=== PATIENT | female | born 2000 | race Caucasian/White ===

== ENCOUNTER 2020-10-25 12:54 | Observation (INO) | payer OTHER ==
[2020-10-25] MEDS ORDERED: ACETAMINOPHEN 500 MG TABLET PO ONE (15:30)
== END 2020-10-25 16:05 | disposition home or self-care (01) ==
LOC: 3 SO LND 13:00 → UNDOADMIN 13:00 → 3 SO LND 13:00 → UNDODISIN 16:05
PROVIDERS: ADMIT Obstetrics & Gynecology; ATTEND Obstetrics & Gynecology
DX: O21.2 Late vomiting of pregnancy (principal); O26.893 Other specified pregnancy related conditions, third trimester; R10.2 Pelvic and perineal pain; R10.9 Unspecified abdominal pain; Z3A.29 29 weeks gestation of pregnancy
CPT/HCPCS: 59025; G0378; G0379

== ENCOUNTER 2020-12-26 16:38 | Observation (INO) | payer OTHER ==
[2020-12-26] MEDS ORDERED: IV RINGERS,LACTATED 1000ML 1,000 ML IV SCH (17:00)
[2020-12-26 17:41] LABS: BILIRUBIN,URINE NEGATIVE (NEG); CLARITY,URINE CLEAR; COLOR,URINE YELLOW; NITRITE,URINE POSITIVE (NEG); PROTEIN,URINE NEGATIVE (NEG-TRACE); UROBILINOGEN,URINE 0.2 mg/dL (0.2 mg/dL)
[2020-12-26 17:49] LABS: BACTERIA,URINE MODERATE /HPF (0-FEW); RBC,URINE OCC /HPF (0-2)
[2020-12-26] MEDS ORDERED: SMZ/TMP 800/160MG TABLET. PO ONE (20:00)
== END 2020-12-26 20:05 | disposition home or self-care (01) ==
LOC: 3 SO LND 16:38
PROVIDERS: ADMIT Obstetrics & Gynecology; ATTEND Obstetrics & Gynecology
DX: O21.2 Late vomiting of pregnancy (principal); O26.893 Other specified pregnancy related conditions, third trimester; H53.8 Other visual disturbances; R10.30 Lower abdominal pain, unspecified; Z3A.37 37 weeks gestation of pregnancy
CPT/HCPCS: 59025; 81001; 87086; G0378; G0379

== ENCOUNTER 2021-07-07 08:56 | Emergency (ER) | payer OTHER ==
[~2021-07-07] VITALS: Ht 170.2 cm; Wt 59.0 kg
[2021-07-07 09:04] VITALS: BP 146/77
[2021-07-07] MEDS ORDERED: KETOROLAC 15 MG/ML VIAL. IVP ONE ×2 (10:15→12:30)
[2021-07-07] MEDS ORDERED: IV NORMAL SALINE 1000ML BAG 1,000 ML IV ONE (10:15)
[2021-07-07] MEDS ORDERED: ORPHENADRINE CITRATE 60 MG/2 ML VIAL. IV ONE (10:15)
[2021-07-07 10:33] LABS: BASO % 0 % (0-3); EOS # 0.1 x10^3/uL (0.0-0.7); EOS % 1 % (0-3); HEMATOCRIT 31.7 % (36.0-47.0); HEMOGLOBIN 10.8 g/dL (12.0-15.5); LYMPH # 1.8 x10^3/uL (1.0-4.8); LYMPH % 20 % (24-48); MEAN CORPUSCULAR HEMOGLOBIN 32 pg (25-35); MEAN CORPUSCULAR HGB CONC 34 g/dL (31-37); MEAN CORPUSCULAR VOLUME 94 fL (79-100); MONO # 0.7 x10^3/uL (0.0-1.1); MONO % 8 % (0-9); NEUT # 6.5 x10^3/uL (1.8-7.7); NEUT % 72 % (31-73); PLATELET COUNT 326 x10^3/uL (140-400); RED BLOOD COUNT 3.37 x10^6/uL (3.50-5.40); RED CELL DISTRIBUTION WIDTH 13.4 % (11.5-14.5); WHITE BLOOD COUNT 9.1 x10^3/uL (4.0-11.0)
[2021-07-07 10:53] LABS: CALCIUM 8.9 mg/dL (8.5-10.1); CREATININE 0.7 mg/dL (0.6-1.0); GFR 105.6; POTASSIUM 3.2 mmol/L (3.5-5.1)
[2021-07-07 10:59] LABS: ALBUMIN 3.5 g/dL (3.4-5.0); ALBUMIN/GLOBULIN RATIO 0.8 (1.0-1.7); TOTAL BILIRUBIN 0.2 mg/dL (0.2-1.0)
[2021-07-07 11:35] LABS: BILIRUBIN,URINE NEGATIVE (NEG); CLARITY,URINE CLEAR; COLOR,URINE YELLOW; NITRITE,URINE NEGATIVE (NEG); PROTEIN,URINE NEGATIVE (NEG-TRACE); UROBILINOGEN,URINE 0.2 mg/dL (0.2 mg/dL)
[2021-07-07 11:48] LABS: BACTERIA,URINE FEW /HPF (0-FEW); RBC,URINE 0 /HPF (0-2)
--- NOTE | 2021-07-07 12:17 | RAD ---
EXAMINATION: CT ABDOMEN+PELVIS WO CLINICAL HISTORY: Bilateral flank pain TECHNIQUE: Imaging of the abdomen and pelvis was performed without intravenous contrast using standar d technique, scanning from just above the dome of the diaphragm to the symphysis pubis. Unenhanced i maging is limited for the evaluation of some intra-abdominal and pelvic pathology. CT Dose Reduction Employed: One or more of the following individualized dose reduction techniques wer e utilized for this examination: 1. Automated exposure control 2. Adjustment of the mA and/or kV ac cording to patient size 3. Use of iterative reconstruction technique. COMPARISON: None FINDINGS: Visualized heart and lungs unremarkable. Mild hepatomegaly. Gallbladder, pancreas, spleen, and adrenal glands unremarkable. Unenhanced kidneys unremarkable. No visualized urolithiasis or evidence of obstructive uropathy. Nondiagnostic evaluation of the decompressed urinary bladder. Uterus and ovaries unremarkable on limi camille evaluation. Mild fluid in the rectouterine fossa, possibly physiologic. No dilated bowel. Appendix within normal limits. No abdominal aortic or iliac artery aneurysm. No evidence of acute osseous abnormality. 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 IMPRESSION: No evidence of acute abdominopelvic abnormality. No urolithiasis or evidence of obstructive uropathy. Mild hepatomegaly. Electronically signed by: Milind Ken DO (07/07/2021 12:15 PM) [facility]
[2021-07-07] MEDS ORDERED: POTASSIUM CHLORIDE 20 MEQ TABLET.ER. PO ONE (12:30)
[2021-07-07] MEDS ORDERED: HYDROcodone/APAP 5/325MG 1 TAB TABLET PO ONE (12:30)
[2021-07-07] MEDS ORDERED: HYDR-2761 PO (12:32)
[2021-07-07] MEDS ORDERED: ORPH100T PO (12:32)
--- NOTE | 2021-07-07 12:33 | PHYS DOC ---
Past Medical History Past Surgical History: Tonsillectomy Additional Past Surgical Histo: "TUBES IN MY EARS" Smoking Status: Current Every Day Smoker Alcohol Use: None General Adult EDM: Chief Complaint: BACK PAIN - NO INJURY HPI: HPI: Patient is a 21 year old [f__sex] who presents with [] Review of Systems: Review of Systems: Constitutional: Denies fever or chills Eyes: Denies redness or eye pain HENT: Denies nasal congestion or sore throat Respiratory: Denies cough or shortness of breath Cardiovascular: Denies chest pain or palpitations GI: Denies abdominal pain, nausea, or vomiting : Denies dysuria or hematuria Musculoskeletal: Denies back pain or joint pain Integument: Denies rash or skin lesions Neurologic: Denies headache, focal weakness or sensory changes Complete systems were reviewed and found to be within normal limits, except as documented in this note. Heart Score: C/O Chest Pain: N/A Current Medications: Current Medications Medications (Trade) Dose Ordered Sig/Jose Start Time Stop Time Status Last Admin Dose Admin Ketorolac Tromethamine (Toradol 15mg Vial) 15 mg 1X ONCE 07/07/21 10:15 07/07/21 10:27 DC 07/07/21 11:34 15 MG Orphenadrine Citrate (Norflex) 60 mg 1X ONCE 07/07/21 10:15 07/07/21 10:27 DC 07/07/21 11:34 60 MG Potassium Chloride (Klor-Con) 40 meq 1X ONCE 07/07/21 12:30 07/07/21 12:31 Sodium Chloride 1,000 ml @ 1,000 mls/hr 1X ONCE 07/07/21 10:15 07/07/21 11:14 DC 07/07/21 10:57 1,000 MLS/HR Allergies: Allergies: Allergies Coded Allergies Type Severity Reaction Last Updated Verified nitrofurantoin Allergy Unknown 07/07/21 Yes Physical Exam: PE: Constitutional: Well developed, well nourished, no acute distress, non-toxic appearance HENT: Normocephalic, atraumatic Eyes: PERRL, EOMI, conjunctiva normal, no discharge Neck: Normal range of motion, no tenderness, supple Lungs & Thorax: No respiratory distress, equal chest rise and fall Abdomen: Soft, no tenderness Skin: Warm, dry, no erythema, no rash Back: No tenderness, no CVA tenderness Extremities: No tenderness, ROM intact, no edema Neurologic: Alert and oriented X 3, normal motor function, normal sensory function, no focal deficits noted Psychologic: Affect normal, judgment normal Current Patient Data: Labs: Laboratory Tests Test 07/07/21 09:34 07/07/21 11:24 07/07/21 11:27 White Blood Count 9.1 x10^3/uL (4.0-11.0) Red Blood Count 3.37 x10^6/uL (3.50-5.40) L Hemoglobin 10.8 g/dL (12.0-15.5) L Hematocrit 31.7 % (36.0-47.0) L Mean Corpuscular Volume 94 fL (79-100) Mean Corpuscular Hemoglobin 32 pg (25-35) Mean Corpuscular Hemoglobin Concent 34 g/dL (31-37) Red Cell Distribution Width 13.4 % (11.5-14.5) Platelet Count 326 x10^3/uL (140-400) Neutrophils (%) (Auto) 72 % (31-73) Lymphocytes (%) (Auto) 20 % (24-48) L Monocytes (%) (Auto) 8 % (0-9) Eosinophils (%) (Auto) 1 % (0-3) Basophils (%) (Auto) 0 % (0-3) Neutrophils # (Auto) 6.5 x10^3/uL (1.8-7.7) Lymphocytes # (Auto) 1.8 x10^3/uL (1.0-4.8) Monocytes # (Auto) 0.7 x10^3/uL (0.0-1.1) Eosinophils # (Auto) 0.1 x10^3/uL (0.0-0.7) Basophils # (Auto) 0.0 x10^3/uL (0.0-0.2) Sodium Level 141 mmol/L (136-145) Potassium Level 3.2 mmol/L (3.5-5.1) L Chloride Level 103 mmol/L (98-107) Carbon Dioxide Level 28 mmol/L (21-32) Anion Gap 10 (6-14) Blood Urea Nitrogen 9 mg/dL (7-20) Creatinine 0.7 mg/dL (0.6-1.0) Estimated GFR (Cockcroft-Gault) 105.6 BUN/Creatinine Ratio 13 (6-20) Glucose Level 81 mg/dL (70-99) Lactic Acid Level 0.8 mmol/L (0.4-2.0) Calcium Level 8.9 mg/dL (8.5-10.1) Total Bilirubin 0.2 mg/dL (0.2-1.0) Aspartate Amino Transferase (AST) 13 U/L (15-37) L Alanine Aminotransferase (ALT) 22 U/L (14-59) Alkaline Phosphatase 61 U/L (46-116) Total Protein 8.0 g/dL (6.4-8.2) Albumin 3.5 g/dL (3.4-5.0) Albumin/Globulin Ratio 0.8 (1.0-1.7) L Lipase 54 U/L (73-393) L Urine Collection Type Void Urine Color Yellow Urine Clarity Clear Urine pH 6.0 (<5.0-8.0) Urine Specific [place] 1.025 (1.000-1.030) Urine Protein Negative mg/dL (NEG-TRACE) Urine Glucose (UA) Negative mg/dL (NEG) Urine Ketones (Stick) Negative mg/dL (NEG) Urine Blood Negative (NEG) Urine Nitrite Negative (NEG) Urine Bilirubin Negative (NEG) Urine Urobilinogen Dipstick 0.2 mg/dL (0.2 mg/dL) Urine Leukocyte Esterase Negative (NEG) Urine RBC 0 /HPF (0-2) Urine WBC 1-4 /HPF (0-4) Urine Squamous Epithelial Cells Mod /LPF Urine Bacteria Few /HPF (0-FEW) Urine Mucus Mod /LPF POC Urine HCG, Qualitative Hcg negative (Negative) Laboratory Tests 07/07/21 09:34 Laboratory Tests 07/07/21 09:34 Vital Signs: Vital Signs Date Time Temp Pulse Resp B/P (MAP) Pulse Ox O2 Delivery O2 Flow Rate FiO2 07/07/21 09:04 97.7 107 16 146/77 (100) 100 Room Air 97.7 EKG: EKG: [] Radiology/Procedures: Radiology/Procedures: PROCEDURE: CT ABDOMEN PELVIS WO CONTRAST EXAMINATION: CT ABDOMEN+PELVIS WO CLINICAL HISTORY: Bilateral flank pain TECHNIQUE: Imaging of the abdomen and pelvis was performed without intravenous contrast using standard technique, scanning from just above the dome of the diaphragm to the symphysis pubis. Unenhanced imaging is limited for the evaluation of some intra-abdominal and pelvic pathology. CT Dose Reduction Employed: One or more of the following individualized dose reduction techniques were utilized for this examination: 1. Automated exposure control 2. Adjustment of the mA and/or kV according to patient size 3. Use of iterative reconstruction technique. COMPARISON: None FINDINGS: Visualized heart and lungs unremarkable. Mild hepatomegaly. Gallbladder, pancreas, spleen, and adrenal glands unremarkable. Unenhanced kidneys unremarkable. No visualized urolithiasis or evidence of obs tructive uropathy. Nondiagnostic evaluation of the decompressed urinary bladder. Uterus and ovaries unremarkable on limited evaluation. Mild fluid in the rectouterine fossa, possibly physiologic. No dilated bowel. Appendix within normal limits. No abdominal aortic or iliac artery aneurysm. No evidence of acute osseous abnormality. Transitional lumbosacral vertebra with partial lumbarization of S1. IMPRESSION: No evidence of acute abdominopelvic abnormality. No urolithiasis or evidence of obstructive uropathy. Mild hepatomegaly. Electronically signed by: Milind Ken DO (07/07/2021 12:15 PM) [facility] Course & Med Decision Making: Course & Med Decision Making Pertinent Labs and Imaging studies reviewed. (See chart for details) Patient stable for discharge with outpatient follow-up with PCP. Discussed findings and plan with patient, who acknowledges understanding and agreement. Davidson Disclaimer: Davidson Disclaimer: This electronic medical record was generated, in whole or in part, using a voice recognition dictation system. Departure Departure Impression: Primary Impression: Back pain Qualified Codes: M54.50 - Low back pain, unspecified Additional Impressions: Hypokalemia Hx: UTI (urinary tract infection) Disposition: HOME / SELF CARE / HOMELESS Condition: STABLE Referrals: CHRISTIANNE DONALD (PCP) CARMEN MUSA MD Patient Instructions: Back Pain, Adult, [id number], Hypokalemia, Potassium Content of Foods Additional Instructions: Please take previously prescribed antibiotic as directed to completion. Take [id number] ibuprofen and or Tylenol for pain or discomfort. Ice area of discomfort 20 minutes on then leave off for next 20 minutes. Repeat several times for the next few days. Scripts Hydrocodone Bit/Acetaminophen (HYDROCODONE-APAP 5-325 ) 1 Tab Tablet 0.5-1 TAB PO PRN Q6HRS PRN for PAIN, #10 TAB 0 Refills Prov: JOE TOLEDO DO 07/07/21 Orphenadrine Citrate (ORPHENADRINE CITRATE) 100 Mg Tablet.er 100 MG PO BID PRN for MUSCLE PAIN, #14 TAB Prov: JOE TOLEDO DO 07/07/21 JOE TOLEDO DO Jul 07, 2021 12:33
== END 2021-07-07 12:59 | disposition home or self-care (01) ==
LOC: ER 08:56
DX: M54.50 Low back pain, unspecified (principal); Z20.822 Contact with and (suspected) exposure to COVID-19; E87.6 Hypokalemia; F17.200 Nicotine dependence, unspecified, uncomplicated; Z88.8 Allergy status to other drugs, medicaments and biological substances
CPT/HCPCS: 36415; 74176; 80053; 81001; 81025; 83605; 83690; 85025; 96361; 96374; 96375; 96376; 99284; J1885; J2360; J7030

== ENCOUNTER 2022-02-05 07:59 | Emergency (ER) | payer OTHER ==
[~2022-02-05] VITALS: Ht 167.6 cm; Wt 66.0 kg
[~2022-02-05 07:59] MED LIST: HYDR-2761 PO; ORPH100T PO
[2022-02-05 08:47] VITALS: BP 110/59
[2022-02-05] MEDS ORDERED: HYDROcodone/APAP 5/325MG 1 TAB TABLET PO ONE (09:30)
[2022-02-05 09:57] LABS: INFLUENZA A PATIENT NEGATIVE (NEGATIVE); INFLUENZA B PATIENT NEGATIVE (NEGATIVE)
[2022-02-05 10:10] LABS: BACTERIA,URINE MODERATE /HPF (0-FEW); RBC,URINE OCC /HPF (0-2); WBC,URINE >40 /HPF (0-4)
[2022-02-05] MEDS ORDERED: cefTRIAXone IM 1 GM VIAL IM ONE (10:15)
[2022-02-05] MEDS ORDERED: CEPH500C PO (10:17)
--- NOTE | 2022-02-05 10:18 | PHYS DOC ---
Past Medical History Past Medical History: UTI Past Surgical History: No Surgical History Additional Past Surgical Histo: "TUBES IN MY EARS" Smoking Status: Current Every Day Smoker Alcohol Use: None Drug Use: None General Adult EDM: Chief Complaint: GENERALIZED BODY ACHES HPI: HPI: Patient is a 21 year old female who presents with last week of right flank pain, body aches with pain of urination that feels like a punching type pain. Rates her pain a 10 out of 10 at this time she is [address] Head. She does have a history of UTI and smoking. She is G3, P1. She has been taking Tylenol and hot baths. She states that her it is hard to sleep. She is taking the leftover Macrobid and penicillin the last 2 days. She states she is not getting better. Denies nausea, vomiting, diarrhea, vaginal bleeding, vaginal discharge, abdominal cramping, chest pain, shortness of breath, headache, dizziness, numbness or tingling, focal weakness, concern for STD. Review of Systems: Review of Systems: Constitutional: Denies fever or +chills. [] Eyes: Denies change in visual acuity. [] HENT: Denies nasal congestion or sore throat. [] Respiratory: Denies cough or shortness of breath. [] Cardiovascular: Denies chest pain or edema. [] GI: Denies abdominal pain, nausea, vomiting, bloody stools or diarrhea. [] : + dysuria. [] Musculoskeletal: + Right flank back pain or denies joint pain. + Generalized body aches [] Integument: Denies rash. [] Neurologic: Denies headache, focal weakness or sensory changes. [] Endocrine: Denies polyuria or polydipsia. [] Lymphatic: Denies swollen glands. [] Psychiatric: Denies depression or anxiety. [] Heart Score: C/O Chest Pain: No Current Medications: Current Medications Medications (Trade) Dose Ordered Sig/Jose Start Time Stop Time Status Last Admin Dose Admin Acetaminophen/ Hydrocodone Bitart (Lortab 5/325) 1 tab 1X ONCE 02/05/22 09:30 02/05/22 09:31 DC 02/05/22 09:26 1 TAB Allergies: Allergies: Allergies Coded Allergies Type Severity Reaction Last Updated Verified nitrofurantoin Allergy Unknown 07/07/21 Yes Physical Exam: PE: Constitutional: Well developed, well nourished, no acute distress, non-toxic appearance. [] HENT: Normocephalic, atraumatic, bilateral external ears normal, oropharynx moist, no oral exudates, nose normal. [] Eyes: PERRLA, EOMI, conjunctiva normal, no discharge. [] Neck: Normal range of motion, no tenderness, supple, no stridor. [] Cardiovascular:Heart rate tachycardia regular rhythm, no murmur [] Lungs & Thorax: Bilateral breath sounds clear to auscultation [] Abdomen: Bowel sounds normal, soft, no tenderness, no masses, no pulsatile masses. [] Skin: Warm, dry, no erythema, no rash. [] Back: No tenderness, no CVA tenderness. [] Extremities: No tenderness, no cyanosis, no clubbing, ROM intact, no edema. [] Neurologic: Alert and oriented X 3, normal motor function, normal sensory function, no focal deficits noted. [] Psychologic: Affect normal, judgement normal, mood normal. [] Current Patient Data: Labs: Laboratory Tests Test 02/05/22 08:58 02/05/22 09:25 POC Urine HCG, Qualitative Hcg positive (Negative) Influenza Type A Antigen Negative (NEGATIVE) Influenza Type B Antigen Negative (NEGATIVE) SARS-CoV-2 Antigen (Rapid) Negative (NEGATIVE) Vital Signs: Vital Signs Date Time Temp Pulse Resp B/P (MAP) Pulse Ox O2 Delivery O2 Flow Rate FiO2 02/05/22 08:47 97.5 110 20 110/59 (76) 98 Room Air 97.5 EKG: EKG: [] Radiology/Procedures: Radiology/Procedures: [] Course & Med Decision Making: Course & Med Decision Making Pertinent Labs and Imaging studies reviewed. (See chart for details) See HPI. Alert and oriented x4. Ambulatory with steady gait. Speaks in full clear sentences. Skin pink warm and dry. Abdomen is soft and nontender. No CVA tenderness. Afebrile. Nonseptic appearing. Patient has not taken Tylenol since yesterday. heart tones are 155. Urinalysis shows infection. I am giving her 1 g IM of Rocephin. She will be sent home on Keflex. Blood pressure within normal limits. After sitting in the room patient's heart rate is going down to 86. She is stable and afebrile. Nonseptic appearing. [] Davidson Disclaimer: Davidson Disclaimer: This electronic medical record was generated, in whole or in part, using a voice recognition dictation system. Departure Departure Impression: Primary Impression: Urinary tract infection affecting Disposition: HOME / SELF CARE / HOMELESS Condition: STABLE Referrals: CHRISTIANNE DONALD (PCP) Patient Instructions: - Urinary Tract Infection Additional Instructions: Follow-up with your primary care provider or your [facility] as soon as possible. I would call today to let them know what is going on. Drink fluids to stay hydrated. Take medication until it is totally gone even if you are feeling better. Is important to make sure the infection is gone and dry to never leave antibiotics left over. Continue taking Tylenol for your pain. Scripts Cephalexin (KEFLEX) 500 Mg Capsule 1 CAP PO TID, #30 CAP Prov: JANIS QURESHI APRN 02/05/22 JANIS QURESHI APRN February 05, 2022 10:18
== END 2022-02-05 11:34 | disposition home or self-care (01) ==
LOC: ER 07:59
DX: O23.42 Unspecified infection of urinary tract in pregnancy, second trimester (principal); N39.0 Urinary tract infection, site not specified; O99.332 Smoking (tobacco) complicating pregnancy, second trimester; Z20.822 Contact with and (suspected) exposure to COVID-19; Z3A.27 27 weeks gestation of pregnancy
CPT/HCPCS: 81001; 81025; 87086; 87428; 87491; 87591; 96372; 99283; J0696